=== PATIENT | male | born 1995 | race African-American/Black ===

== ENCOUNTER 2023-10-25 00:35 | Emergency (ER) | payer BC ==
[~2023-10-25] VITALS: Ht 175.3 cm; Wt 123.0 kg
[2023-10-25 00:41] VITALS: BP 146/84; TEMP 98.1; O2SAT 97
[2023-10-25 00:47] VITALS: PULSE 100; RESP 20
[2023-10-25] MEDS ORDERED: LIDOCAINE HCL/PF 1% 10 MG/ML 5ML VIAL INFIL ONE (02:45)
[2023-10-25] MEDS ORDERED: BACITRACIN ZINC OINT UDPKT TOP ONE (02:45)
[2023-10-25] MEDS ORDERED: TETANUS, DIPHTHERIA, PERTUSSIS VAC/PF 0.5ML (>10YR OLD) IM ONE (02:45)
== END 2023-10-25 03:45 | disposition home or self-care (01) ==
LOC: ER 00:35
DX: S61.211A Laceration without foreign body of left index finger without damage to nail, initial encounter (principal); X58.XXXA Exposure to other specified factors, initial encounter; Y93.89 Activity, other specified; Y92.89 Other specified places as the place of occurrence of the external cause; Y99.8 Other external cause status
CPT/HCPCS: 99283; 90715; 12002; 90471; J3490